=== PATIENT | female | born 1965 | race Caucasian/White ===

== ENCOUNTER 2016-06-11 17:10 | Emergency (ER) | payer MEDICARE, OTHER | END 2016-06-11 20:28 | disposition home or self-care (01) | LOC: ER1 17:10 | DX: G90.522 Complex regional pain syndrome I of left lower limb (principal); I10 Essential (primary) hypertension; E11.9 Type 2 diabetes mellitus without complications; E78.5 Hyperlipidemia, unspecified; F17.210 Nicotine dependence, cigarettes, uncomplicated; Z88.1 Allergy status to other antibiotic agents; Z88.5 Allergy status to narcotic agent | CPT/HCPCS: 96372; 99283; J1100; J1885 ==

== ENCOUNTER 2016-06-23 22:41 | Emergency (ER) | payer MEDICARE, OTHER | END 2016-06-24 00:10 | disposition home or self-care (01) | LOC: ER1 22:41 | DX: G90.523 Complex regional pain syndrome I of lower limb, bilateral (principal); B00.9 Herpesviral infection, unspecified; Z88.1 Allergy status to other antibiotic agents; Z88.5 Allergy status to narcotic agent | CPT/HCPCS: 96372; 99283; J1100; J1885; Q0162 ==

== ENCOUNTER 2016-07-29 16:02 | Emergency (ER) | payer MEDICARE, OTHER | END 2016-07-29 20:16 | disposition home or self-care (01) | LOC: ER1 16:02 | DX: M54.5 Low back pain (principal); G89.29 Other chronic pain; R11.0 Nausea; E11.9 Type 2 diabetes mellitus without complications; F17.200 Nicotine dependence, unspecified, uncomplicated; Z88.5 Allergy status to narcotic agent | CPT/HCPCS: 96372; 99283; J1885; J2930 ==

== ENCOUNTER 2021-07-30 16:26 | Emergency (ER) | payer MEDICARE, OTHER ==
[2021-07-30 20:58] LABS: HEMOGLOBIN 15.5 gm/dl (12.3-15.3); RED BLOOD COUNT 4.86 M/UL (4.00-5.10); WHITE BLOOD COUNT 18.1 K/UL (4.5-11.0)
[2021-07-30] MEDS ORDERED: CLEOCIN HCL150 MG PO (22:46)
== END 2021-07-30 23:00 | disposition home or self-care (01) ==
LOC: ER1 16:26
PROVIDERS: Physician Assistant
DX: K02.9 Dental caries, unspecified (principal); K05.10 Chronic gingivitis, plaque induced; M27.2 Inflammatory conditions of jaws; I10 Essential (primary) hypertension; E11.9 Type 2 diabetes mellitus without complications; F17.210 Nicotine dependence, cigarettes, uncomplicated
CPT/HCPCS: 70487; 80053; 84703; 85025; 99283; Q9967